=== PATIENT | male | born 1975 | race Caucasian/White ===

== ENCOUNTER 2020-04-06 12:28 | Emergency (ER) | payer SELFPAY ==
[2020-04-06 12:34] VITALS: BP 173/108
[2020-04-06] MEDS ORDERED: IBUPROFEN 600 MG TAB PO ONE (12:34)
--- NOTE | 2020-04-06 12:35 | Event Note ---
ED Screening Note Date of service: 04/06/20 Time: 12:33 ED Screening Note: 45-year-old -[place] male brought in by [facility] for 2-week history of right finger pain and swelling. Patient denies any past medical history no allergies to medicines. Patient appears to have injured his finger. Vital signs elevated blood pressure. Afebrile. This initial assessment/diagnostic orders/clinical plan/treatment(s) is/are subject to change based on patients health status, clinical progression and re- assessment by fellow clinical providers in the ED. Further treatment and workup at subsequent clinical providers discretion. Patient/guardian urged not to elope from the ED as their condition may be serious if not clinically assessed and managed. Initial orders include:
--- NOTE | 2020-04-06 14:24 | XRay Report ---
XR finger(s) 2+V RT INDICATION / CLINICAL INFORMATION: Right index finger swelling pain.. COMPARISON: None available. FINDINGS: Significant soft tissue swelling in the the abnormal portion of the first right finger. No cortical l ysis. No acute fracture. There is mild benign appearing periosteal reaction. Normal alignment. Join t spaces are preserved. No erosions.No destructive osseous lesion or suspicious periosteal reaction. Impression: 1. Diffuse soft tissue swelling of the right first finger with benign solid periosteal reaction consi stent with dactylitis. This is nonspecific but can be seen in psoriasis. However, there are no erosio ns. Correlate clinically. Signer Name: Jason Rodas MD Signed: 04/06/2020 2:20 PM Workstation Name: [id number]
--- NOTE | 2020-04-06 15:09 | Emergency Department Report ---
ED Upper Extremity Inj HPI - General Chief Complaint: Extremity Injury, Upper Stated Complaint: SWOLLEN FINGER X 2WKS Source: patient, EMS Mode of arrival: Wheelchair Limitations: No Limitations - History of Present Illness Initial Comments: 45-year-old -Indian male [facility] for 2-week history of right finger pain and swelling. Patient denies any past medical history no allergies to medicines. Patient appears to have injured his finger. Vital signs elevated blood pressure. Afebrile. MD Complaint: Injury to:: right, finger (Index) Onset/Timin -: week(s) Other Extremity Injury: Fingers: Right (Index) Other Injuries: none Handedness: right Severity scale (0 -10): 9 Improves With: immobilization Worsens With: movement of extremity Associated Symptoms: denies other symptoms - Related Data Allergies Allergy/AdvReac Type Severity Reaction Status Date / Time No Known Allergies Allergy Unverified 04/06/20 12:32 ED Review of Systems ROS: Stated complaint: SWOLLEN FINGER X 2WKS Other details as noted in HPI Comment: All other systems reviewed and negative ED Past Medical Hx - Past Medical History Previous Medical History?: No - Surgical History Past Surgical History?: No ED Physical Exam - General Limitations: No Limitations, Other (Hard of hearing) General appearance: alert - Head Head exam: Present: atraumatic, normocephalic - Eye Eye exam: Present: normal appearance - ENT ENT exam: Present: mucous membranes moist - Expanded Upper Extremity Exam Right Upper Arm exam: Present: normal inspection, full ROM Elbow exam: Present: normal inspection, full ROM Forearm Wrist exam: Present: normal inspection, full ROM Hand Wrist exam: Present: tenderness, swelling. Absent: full ROM - Neurological Exam Neurological exam: Present: alert, oriented X3 - Psychiatric Psychiatric exam: Present: normal affect ED Course Vital Signs 04/06/20 12:32 Temperature 98 F Pulse Rate 102 H Respiratory 24 Rate Blood Pressure 173/108 [Right] O2 Sat by Pulse 100 Oximetry ED Medical Decision Making - Radiology Data Radiology results: report reviewed [facility] [address] [place] [address] XRay Report Signed Patient: USHA RUIZ MR#: [id number] : 1975 Acct:[id number] Age/Sex: 45 / M ADM Date: 04/06/20 Loc: ED Attending Dr: Ordering Physician: OMAR METZGER Date of Service: 04/06/20 Procedure(s): XR finger(s) 2+V RT Accession Number(s): [id number] cc: OMAR METZGER Fluoro Time In Minutes: XR finger(s) 2+V RT INDICATION / CLINICAL INFORMATION: Right index finger swelling pain.. COMPARISON: None available. FINDINGS: Significant soft tissue swelling in the the abnormal portion of the first right finger. No cortical lysis. No acute fracture. There is mild benign appearing periosteal reaction. Normal alignment. Joint spaces are preserved. No erosions.No destructive osseous lesion or rose mary picious periosteal reaction. Impression: 1. Diffuse soft tissue swelling of the right first finger with benign solid periosteal reaction consistent with dactylitis. This is nonspecific but can be seen in psoriasis. However, there are no erosions. Correlate clinically. Signer Name: Jason Rodas MD Signed: 04/06/2020 2:20 PM Workstation Name: [id number] Transcribed By: KAREL Dictated By: Jason Rodas MD Electronically Authenticated By: Jason Rodas MD Signed Date/Time: 04/06/20 142 DD/ 141 TD/TT: - Medical Decision Making 45-year-old -Indian male brought in by [facility] services for 2-week history of right finger pain and swelling. Patient denies any past medical history no allergies to medicines. Patient appears to have injured his finger. Vital signs elevated blood pressure. Afebrile. X-rays negative for any acute abnormality. It does show some periosteal area. No erosion. Recommend ibuprofen and to follow-up with an orthopedic provider. Critical care attestation.: If time is entered above; I have spent that time in minutes in the direct care of this critically ill patient, excluding procedure time. ED Disposition Clinical Impression: Finger pain Disposition: - ELOPED Is pt being admited?: No Does the pt Need Aspirin: No Condition: Stable Referrals: YURIDIA COVARRUBIAS MD [Primary Care Provider] - 3-5 Days
== END 2020-04-06 17:30 | disposition left against medical advice (07) ==
LOC: ED 12:28
DX: M79.644 Pain in right finger(s) (principal); R22.31 Localized swelling, mass and lump, right upper limb